=== PATIENT | female | born 1940 | race Caucasian/White ===

== ENCOUNTER 2017-10-29 13:14 | Emergency (ER) | payer OTHER ==
[~2017-10-29] VITALS: Ht 160 cm; Wt 77.1 kg
[~2017-10-29 13:14] MED LIST: AMLO5TAB2 PO; CLON0.1T PO; DOCU100T15 PO; HYDR-4683 PO; METO25TA5 PO; METR500T PO; OMEP20CA74 PO
[2017-10-29 15:18] VITALS: BP 169/75
== END 2017-10-29 17:08 | disposition home or self-care (01) ==
LOC: ER 13:14
DX: S82.62XA Displaced fracture of lateral malleolus of left fibula, initial encounter for closed fracture (principal); K21.9 Gastro-esophageal reflux disease without esophagitis; I10 Essential (primary) hypertension; Z88.1 Allergy status to other antibiotic agents; Z88.0 Allergy status to penicillin; Z88.8 Allergy status to other drugs, medicaments and biological substances; Z86.73 Personal history of transient ischemic attack (TIA), and cerebral infarction without residual deficits; X58.XXXA Exposure to other specified factors, initial encounter; Y93.89 Activity, other specified; Y92.89 Other specified places as the place of occurrence of the external cause; Y99.8 Other external cause status
CPT/HCPCS: 29515; 73610